=== PATIENT | male | born 1955 | race African-American/Black ===

== ENCOUNTER 2021-07-20 13:59 | Emergency (ER) | payer BC, OTHER ==
[~2021-07-20] VITALS: Ht 180.3 cm; Wt 105.0 kg
[~2021-07-20 13:59] MED LIST: ASPI-1497 PO; BENA40TA9 PO
[2021-07-20] MEDS ORDERED: DEXAMETHASONE 10 MG/ML VIAL IV NR (15:30)
[2021-07-20] MEDS ORDERED: SODIUM CHLORIDE 0.9% 1,000 ML IV ONE (15:30)
[2021-07-20 15:36] LABS: BASOPHILS % 0.4 % (0.0-2.0); EOSINOPHILS % 0.1 % (0.0-5.0); HEMATOCRIT. 47.3 % (42.0-52.0); HEMOGLOBIN. 15.7 g/dL (14.0-18.0); LYMPHOCYTES % 13.3 % (20.0-50.0); MEAN CORPUSCULAR VOLUME 81.4 fL (80.0-94.0); MEAN PLATELET VOLUME 8.9 fl (7.4-10.4); MONOCYTES % 8.4 % (2.0-8.0); NEUTROPHILS % 77.8 % (40.0-76.0); PLATELET 192 x1000/uL (130-400); RED CELL DISTRIBUTION WIDTH 14.6 % (11.6-14.6)
[2021-07-20 15:40] LABS: CHLORIDE 104 mEq/L (98-107)
[2021-07-21 06:00] VITALS: BP 136/84
[2021-07-21] MEDS ORDERED: INSULIN REGULAR (HUMULIN R) 300UNITS/3ML VIAL SUBCUT NR (09:30)
== END 2021-07-21 10:18 | disposition left against medical advice (07) ==
LOC: ER 14:31 → CANBEDREQ 07-22 10:41
DX: U07.1 COVID-19 (principal); E11.9 Type 2 diabetes mellitus without complications; I10 Essential (primary) hypertension
CPT/HCPCS: 36415; 71045; 80053; 82962; 84484; 85025; 87426; 93005; 96361; 96372; 96374; 99285; J1100; J1815